=== PATIENT | female | born 1945 | race Caucasian/White ===

== ENCOUNTER 2018-12-30 20:20 | Observation (INO) ==
[2018-12-30 21:05] LABS: BASO# 0.03 X1000 (0.0-0.2); BASO% 0.5 % (0.0-0.8); EOS% 1.7 % (0.0-10.0); HEMATOCRIT 37.5 % (37.0-47.0); HEMOGLOBIN 12.9 g/dL (12.0-16.0); LYMPH# 1.77 X1000 (1.2-3.4); LYMPH% 29.2 % (20.5-51.1); MCH 29.3 PG (27-31); MCHC 34.4 g/dL (33-37); MCV 85.2 FL (81-99); MONO# 0.34 X1000 (0.11-0.59); MONO% 5.6 % (1.7-9.3); MPV 10.1 FL (7.4-10.4); NEUT# 3.82 X1000 (1.4-6.5); PLT 206 X1000 (130-400); RDW 13.3 % (11.5-14.5); WBC 6.06 X1000 (4.8-10.8)
--- NOTE | 2018-12-30 21:08 | Diag Imaging Result Doc PS360 ---
CT HEAD W/O CONTRAST - 12/30/2018 INDICATION: Head injury COMPARISON: 05/06/2016 FINDINGS: The ventricles and sulci are normal in size and contour. There is grossly stable moderate periventricular white matter chronic microvascular ischemia. No intracranial mass or hemorrhage. The skull is intact. The sinuses, mastoids, and middle ears are clear. IMPRESSION: No acute injury. This exam was performed using automated exposure control, adjustment of mA or kV according to patient size, and/or use of iterative reconstruction technique Electronically signed by Angel Kennedy 12/30/2018 9:06 PM
[2018-12-30 21:09] LABS: INR 0.91; PROTIME 12.4 Seconds (11.0-16.0)
--- NOTE | 2018-12-30 21:09 | Diag Imaging Result Doc PS360 ---
CHEST-2 VIEWS - 12/30/2018 INDICATION: ams COMPARISON: 06/14/2018 FINDINGS: There is some mild linear atelectasis or scarring in the lateral left costophrenic angle stable from prior. Stable small calcified granuloma in the right lung. No infiltrates or edema. Heart size is normal. No pneumothorax or pleural effusion. IMPRESSION: No acute disease or change from prior. Electronically signed by Angel Kennedy 12/30/2018 9:06 PM
[2018-12-30 21:10] LABS: PTT 26.2 Seconds (22.3-41.8)
[2018-12-30 21:26] LABS: AGAP 11; ALB/GLOB RATIO 2.1; ALBUMIN 5.1 g/dL (3.5-5.0); ALKALINE PHOSPHATASE 66 U/L (32-104); BUN 11 mg/dL (8-22); CALCIUM 9.3 mg/dL (8.8-10.2); CHLORIDE 100 mmol/L (98-107); CK PROFILE 108 U/L (24-173); COSMO 278; CREATININE 0.8 mg/dL (0.5-0.9); ESTIMATED GFR > 60; GLUCOSE 181 mg/dL (70-104); GOT 16 U/L (10-30); GPT 18 U/L (10-36); POTASSIUM 3.9 mmol/L (3.5-5.1); SODIUM 137 mmol/L (136-145); TCO2 26 mmol/L (25-35); TOTAL BILIRUBIN 0.28 mg/dL (0.20-1.00); TOTAL PROTEIN 7.5 g/dL (6.3-8.3)
--- NOTE | 2018-12-30 22:05 | EKG Report ---
Test Performed on : 12/30/2018 9:14:06 PM Test Reason : ams Blood Pressure : / mmHG Vent. Rate : 070 BPM Atrial Rate : 070 BPM P-R Int : 152 ms QRS Dur : 080 ms QT Int : 364 ms P-R-T Axes : 033 008 -08 degrees QTc Int : 393 ms Normal sinus rhythm. Nonspecific ST and T wave abnormality Abnormal ECG When compared with ECG of 14-JUN-2018 20:35, Nonspecific T wave abnormality now evident in Anterolateral leads Unconfirmed Result
[2018-12-30] MEDS ORDERED: APRESOLINE IV PRN (23:23)
[2018-12-30] MEDS ORDERED: TYLENOL PO PRN (23:24)
[2018-12-30] MEDS ORDERED: ZOFRAN IV PRN (23:24)
[2018-12-30] MEDS ORDERED: NS 1,000 ML IV SCH (23:30)
--- NOTE | 2018-12-31 03:02 | HISTORY AND PHYSICAL ---
CHIEF COMPLAINT: Hand tingling. HISTORY OF PRESENT ILLNESS: The patient is a 73-year-old female who presented to [facility] secondary to slurred speech and hand tingling. She notes that she was at [employer] which she goes to every week and stated that she remembered her son telling her that she was not paying attention and that she had marked the wrong spot on her card. She states that she remembers her hand tingling. 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 Therefore, they brought her to the ER. She denies any previous history of any neurologic event. PAST MEDICAL HISTORY: Hypertension, diabetes, chronic pain, chronic constipation with IBS, history of COPD. Primary care is Dr. Lux Chakraborty. History of hypothyroidism, chronic anxiety, high cholesterol. No previous history of an OK. SURGICAL HISTORY: She has had a D and C and bilateral tubal in the past. FAMILY HISTORY: Noncontributory. SOCIAL HISTORY: She no longer smokes. Does not drink or use illicit substances. She lives at home alone. REVIEW OF SYSTEMS: Denies any fevers, chills, cough, congestion. Denies any dysuria, urinary frequency, urgency, hesitancy, constipation, melena, hematochezia. Denies weight loss, weight gain. Denies headaches, blurred vision, or change in her vision. She denies any focal weakness, but did have some tingling in her right hand that appears to have resolved. She also had some slurred speech that she states has resolved. Her speech appears to be back to normal. PHYSICAL EXAMINATION: VITAL SIGNS: Temperature 97 degrees, pulse 93, respiratory 16, BP 197/109, saturating 98% on room air. GENERAL: Patient is awake, alert. She is in no current respiratory distress. HEENT: Normocephalic. NECK: Supple. CARDIOVASCULAR: Regular rate. CHEST: Clear and nonlabored. ABDOMEN: Soft, nondistended, nontender. EXTREMITIES: Moves all extremities. NEUROLOGIC: No focal changes. Currently, her tingling/numbness appears back to normal. Her speech is back to normal. She is awake, alert, oriented x3. LABORATORIES: CBC, CMP essentially normal with glucose at 181. ASSESSMENT: 1. Acute cerebrovascular accident. Her symptoms appear to be resolving. Although her hand numbness is not 100% resolved, she notes that it is much better. Her speech is back to normal. 2. Diabetes with poor home control with a glucose at 180 although she notes this typically mid 200s to low 300s. A1c is pending. 3. Malignant hypertension. Blood pressure also has poor control at home. She notes it is typically elevated although does not check it on any regular basis. It currently is 190/100. 4. Chronic pain. 5. Chronic anxiety. 6. Chronic constipation. 7. Hypothyroidism. 8. Allergies. PLAN: We are going to admit patient to the hospital, place her on oxygen, check cholesterol and A1c in the a.m. as well as a chemistry profile. Place her on a sliding scale insulin. Restart her home medications. We will allow some permissive hypertension currently, but certainly do not want her pressures stay in the 180s to 190 systolic. We will use hydralazine tonight. Restart her home medications in the morning. We will recheck her thyroid in the morning. Place her on IV fluids, oxygen, and we will follow. cc: MD Lux Luna MD
[2018-12-31] MEDS ORDERED: PROTONIX PO SCH (07:00)
[2018-12-31] MEDS: PRILOSEC PO SCH (07:12)
[2018-12-31] MEDS: HUMALOG SUBQ SCH ×4 (07:12→21:00)
[2018-12-31 07:16] LABS: URINE SOURCE VOIDED
[2018-12-31 07:19] LABS: BILIRUBIN URINE NEGATIVE (NEGATIVE); BLOOD URINE NEGATIVE (NEGATIVE); COLOR YELLOW; GLUCOSE URINE NEGATIVE (NEGATIVE); KETONE URINE NEGATIVE (NEGATIVE); LEUKOCYTES URINE NEGATIVE (NEGATIVE); NITRITE URINE NEGATIVE (NEGATIVE); PROTEIN URINE NEGATIVE (NEGATIVE); SP GRAVITY URINE 1.009; TURBIDITY URINE CLEAR (CLEAR); UROBILINOGEN URINE NORMAL (NORMAL)
[2018-12-31 07:21] LABS: UR EPITHELIAL CELLS <10 /HPF (<10); URINE BACTERIA NEGATIVE /HPF; URINE RBC <10 /HPF (<10); URINE WBC <10 /HPF (<10)
[2018-12-31 07:53] LABS: HEMATOCRIT 36.5 % (37.0-47.0); HEMOGLOBIN 12.4 g/dL (12.0-16.0); MCH 29.5 PG (27-31); MCV 86.9 FL (81-99); MPV 10.1 FL (7.4-10.4); RBC 4.2 XMIL (4.2-5.4); RDW 13.4 % (11.5-14.5); WBC 5.73 X1000 (4.8-10.8)
[2018-12-31] MEDS: ADVAIR 250/50 DISKUS INH SCH ×2 (08:10→19:40)
[2018-12-31 08:23] LABS: AGAP 8; ALB/GLOB RATIO 2.1; ALBUMIN 4.5 g/dL (3.5-5.0); ALKALINE PHOSPHATASE 58 U/L (32-104); BUN 9 mg/dL (8-22); CALCIUM 9.1 mg/dL (8.8-10.2); CHLORIDE 106 mmol/L (98-107); CK PROFILE 103 U/L (24-173); COSMO 287; CREATININE 0.7 mg/dL (0.5-0.9); ESTIMATED GFR > 60; GLUCOSE 159 mg/dL (70-104); GOT 12 U/L (10-30); GPT 15 U/L (10-36); MAGNESIUM 2.2 mg/dL (1.5-2.7); POTASSIUM 4.5 mmol/L (3.5-5.1); SODIUM 143 mmol/L (136-145); TCO2 29 mmol/L (25-35); TOTAL BILIRUBIN 0.32 mg/dL (0.20-1.00); TOTAL PROTEIN 6.6 g/dL (6.3-8.3)
[2018-12-31 08:28] LABS: CHOLESTEROL 140 mg/dL (0-200); HDL 52 mg/dL (45-65); LDL 56 mg/dL; TRIGLYCERIDES 160 mg/dL (35-135); VLDL 32 mg/dL
[2018-12-31] MEDS: AMITIZA PO SCH ×2 (08:56→20:59)
[2018-12-31] MEDS: MIRALAX PO SCH ×2 (08:56→21:00)
[2018-12-31] MEDS: GLUCOPHAGE PO SCH ×2 (08:56→18:12)
[2018-12-31] MEDS: CATAPRES PO SCH ×2 (08:57→20:59)
[2018-12-31] MEDS: LASIX PO SCH (08:57)
[2018-12-31] MEDS: KLOR-CON PO SCH (08:57)
[2018-12-31] MEDS: FLEXERIL PO SCH ×3 (08:57→18:12)
[2018-12-31] MEDS: MUCINEX PO SCH ×2 (08:57→21:00)
[2018-12-31] MEDS: NAPROSYN PO SCH ×2 (08:58→21:00)
[2018-12-31] MEDS: LANTUS INSULIN SUBQ SCH (09:08)
[2018-12-31] MEDS: NORCO-10 PO PRN ×2 (13:44→21:01)
[2018-12-31] MEDS: ZOCOR PO SCH (21:00)
[2019-01-01] MEDS: HUMALOG SUBQ SCH ×4 (06:54→22:03)
[2019-01-01] MEDS: PRILOSEC PO SCH (06:55)
--- NOTE | 2019-01-01 08:06 | ECHO REPORT ---
ORDER DATE: 12/31/2018 INTERPRETING PHYSICIAN: Dr. Hernández REQUESTING PHYSICIAN: CLINICAL INDICATIONS: This is a 73-year-old female with stroke, hypertension, diabetes, COPD. M-MODE MEASUREMENTS: Right ventricle: cm. Left ventricle end diastole: 4.9 cm. Left ventricle end systole: 3.1 cm. Posterior wall: 1.8 cm. Interventricular septum: 2.9 cm. Left atrium: 3.4 cm. Aortic root: 2.9 cm. SUMMARY OF 2-DIMENSIONAL IMAGIN. Left ventricular function is normal. Ejection fraction is estimated at 66%. The ventricular volumes are normal. 2. The right ventricle is normal. 3. Mitral valve looks normal. Color flow mapping is unremarkable. 4. Pulse wave Doppler of mitral inflow shows reversal of the E and the A ratio. The ratio is 0.7. 5. Tissue Doppler of septal and lateral mitral annulus averages 7 cm. 6. Pulmonary venous flow is normal. 7. Aortic valve has 3 cusps. They open normally. Color flow mapping is unremarkable. 8. Pulmonic valve looks normal. Color flow mapping is unremarkable. 9. Tricuspid valve looks normal. Color flow mapping is unremarkable. 10.Pulmonary pressure estimated at 28 mmHg. 11.There is no pericardial effusion, mass or thrombus. CONCLUSIONS: In summary, this echocardiographic study appears to be quite unremarkable. cc: MD Vince Escalante MD
[2019-01-01] MEDS: AMITIZA PO SCH ×2 (08:09→21:45)
[2019-01-01] MEDS: GLUCOPHAGE PO SCH ×2 (08:09→17:02)
[2019-01-01] MEDS: FLEXERIL PO SCH ×3 (08:09→17:02)
[2019-01-01] MEDS: CATAPRES PO SCH ×2 (08:09→21:45)
[2019-01-01] MEDS: MIRALAX PO SCH ×2 (08:09→21:45)
[2019-01-01] MEDS: NAPROSYN PO SCH ×2 (08:09→21:45)
[2019-01-01] MEDS: MUCINEX PO SCH ×2 (08:09→21:46)
[2019-01-01] MEDS: KLOR-CON PO SCH (08:09)
[2019-01-01] MEDS: LASIX PO SCH (08:09)
[2019-01-01] MEDS: ADVAIR 250/50 DISKUS INH SCH ×2 (11:52→20:22)
[2019-01-01] MEDS: LANTUS INSULIN SUBQ SCH (11:58)
--- NOTE | 2019-01-01 14:01 | PROGRESS NOTE ---
DATE: 01/01/2019 SUBJECTIVE: Ms. Ratliff is comfortable. She feels like she has no pain. Feels like her speech is doing well. She is swallowing. Bowels are moving. OBJECTIVE: Temperature 98.1 degrees, pulse 67, respirations 17, blood pressure 120/78. Pupils are equal and round. Lungs are clear in all lung [place]. Cardiovascular Examination: Regular rhythm and rate without murmur or S3. ASSESSMENT/PLAN: Was admitted. Her hand was tingling. Presented to [facility] emergency room, slurred speech, hand tingling. She said she was at [employer] and she goes every week. Remembered her son telling her she was not paying attention and making the wrong spot on the card. 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 She had acute cerebrovascular accident. She was improving. Her hand had improved and her speech was back to normal. She seems to have returned back to baseline. Her blood sugars have been well controlled. Hematocrit 36, hemoglobin 12. Chemistries, blood sugar 229, 130, 1 65. Echocardiogram with Doppler, left ventricular ejection fraction is normal at 66%, normal size. No sign of mural thrombus. No valvular dysfunction. Chest x-ray was no acute disease or change from prior. Head CT without contrast, no acute injury. We will see how she does. Hopefully, can go home soon. REVIEW OF HER MEDICATIONS: She is on Zocor 40 mg a day, Lasix 40 mg a day, metformin 500 mg b.i.d., polyethylene glycol 17 g p.o. b.i.d., Naprosyn 500 mg b.i.d., Amitiza 24 mcg p.o. b.i.d., and Lantus insulin 15 units q.a.m. cc: Adolfo Schwab MD
[2019-01-01] MEDS: NORCO-10 PO PRN (21:46)
[2019-01-01] MEDS: ZOCOR PO SCH (21:46)
[2019-01-02 04:59] VITALS: BP 147/74
[2019-01-02] MEDS: PRILOSEC PO SCH (07:00)
[2019-01-02] MEDS: HUMALOG SUBQ SCH (07:00)
[2019-01-02] MEDS: ADVAIR 250/50 DISKUS INH SCH (08:25)
[2019-01-02] MEDS: MUCINEX PO SCH (09:05)
[2019-01-02] MEDS: CATAPRES PO SCH (09:05)
[2019-01-02] MEDS: AMITIZA PO SCH (09:05)
[2019-01-02] MEDS: KLOR-CON PO SCH (09:05)
[2019-01-02] MEDS: MIRALAX PO SCH (09:05)
[2019-01-02] MEDS: GLUCOPHAGE PO SCH (09:06)
[2019-01-02] MEDS: LASIX PO SCH (09:06)
[2019-01-02] MEDS: LANTUS INSULIN SUBQ SCH (09:06)
[2019-01-02] MEDS: NAPROSYN PO SCH (09:06)
[2019-01-02] MEDS: FLEXERIL PO SCH (09:06)
--- NOTE | 2019-01-02 09:28 | DISCHARGE SUMMARY ---
ADMISSION DATE: 12/30/2018 DISCHARGE DATE: 01/02/2019 HOSPITAL COURSE: She is followed by Dr. Lux Chakraborty. She presented mainly with both hands tingling. A 73-year-old, who presented to [facility]. She felt like she had some slurred speech and hand tingling. Said she was playing [employer]ingo and she started remembering her son said that she was not paying attention, and she had marked the wrong spot on the card. She remembers both hands were tingling; the right hand a little more prominent. Brought her to the emergency room. She has a history of hypertension, diabetes, chronic pain syndrome, chronic constipation, irritable bowel syndrome, history of COPD, has a history of hypothyroidism, chronic anxiety and high cholesterol. SURGICAL HISTORY: She has had D and C and bilateral tubal ligation in the past. ADMISSION DIAGNOSES: 1. We were concerned about possible acute cerebral accident. She had right hand numbness, but that is completely resolved. In retrospect, she says she was tingling in both hands and around her mouth. Her speech seemed to be normal. 2. Diabetes mellitus type 2. Typically her sugars run in the 200s, low 300s. Plan was to check hemoglobin A1c. 3. Malignant hypertension. Blood pressure was running high. 4. Chronic pain syndrome. 5. Chronic anxiety. 6. Chronic constipation. 7. Hypothyroidism. 8. Allergies. She had an echocardiogram with Doppler done on 12/31 and left ventricular motion and function was normal. Ejection fraction 66%. Right ventricle is normal. Mitral valve looked normal. Pulmonic valve normal. Pulmonic pressure was 28 mmHg. No sign of pericardial involvement. She had carotid studies done, and reported unremarkable. Had no focal neurologic deficits. She was alert and oriented x3. Still had some tingling from time to time in both of her hands. Blood pressures came down nicely. She wanted to go home. She did refuse to get an MRI. She felt she could not go inside that contraption, and so I will keep her on an aspirin. 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 She does have a good deal of anxiety, and her predominant symptom was tingling in both of her hands. So she will be on Catapres 0.1 mg b.i.d. She has Flexeril 10 mg t.i.d. p.r.n. for muscle spasm. She was on an Advair inhaler 250/50 one puff twice a day, Lasix 40 mg a day. She is on Mucinex 1200 mg p.o. twice a day, Lantus insulin 15 units subcutaneous q.a.m., Amitiza 24 mcg p.o. b.i.d., Glucophage 500 mg b.i.d., Naprosyn 500 mg twice a day, Prilosec 20 mg a day, Klor-Con 10 mEq daily and Zocor 40 mg a day. At home she has ProAir if she needs it, and she will follow up with Dr. Lux Chakraborty in a couple weeks. cc: Adolfo Schwab MD
== END 2019-01-02 10:39 | disposition home or self-care (01) ==
LOC: ED 20:20 → HOM 22:27 → DIRADM 22:27 → 4N 22:58 → SUATTDRO 22:58
PROVIDERS: ADMIT Emergency Medicine; ATTEND Family Medicine